=== PATIENT | male | born 1995 | race Caucasian/White ===

== ENCOUNTER 2017-06-19 19:02 | Inpatient (IN) | payer BC ==
[2017-06-19] VITALS: BP 102/65
[~2017-06-19] VITALS: Ht 170.2 cm; Wt 57.2 kg
[~2017-06-19 19:02] MED LIST: ADVAIRDISKUS; ALBUTEROL INH; ALBUTEROL2.5 MG/0.5 IH; EPIPEN0.3 MG/0.3 IM; FLONASE; FLOVENT DISKU100 MCG; PREDNISONE 20 M20 M1 PO; SINGULAIR5 MG
[2017-06-19 19:04] VITALS: BP 134/89
[2017-06-19 19:18] LABS: ABSOLUTE EOSINOPHILS 0.1 thou/uL (0.0-0.7); ABSOLUTE LYMPHOCYTES 1.7 thou/uL (0.8-5.3); ABSOLUTE MONOCYTES 0.8 thou/uL (0.0-1.2); ABSOLUTE NEUTROPHILS 3.7 thou/uL (1.6-8.1); BASOPHILS 0.6 %; EOSINOPHILS 1.9 %; HEMATOCRIT 48.7 % (42.0-52.0); HEMOGLOBIN 16.9 gm/dL (14.0-18.0); LYMPHOCYTES 26.3 %; MCH 31.4 pg (26.0-34.0); MCHC 34.8 g/dL (28.0-37.0); MCV 90.3 fL (80.0-100.0); MONOCYTES 12.3 %; MPV 7.2 fl. (7.2-11.1); NUCLEATED RBCS 0 /100WBC; PLATELET COUNT* 264 thou/uL (150-400); POLYS 58.9 %; RBC 5.39 mil/uL (4.50-6.00); RDW-CV 12.4 % (10.5-14.5); WBC 6.3 thou/uL (4.0-11.0)
[2017-06-19 19:27] LABS: CALCIUM 8.7 mg/dL (8.5-10.1); CREATININE 0.9 mg/dL (0.6-1.3); POTASSIUM 3.1 mmol/L (3.5-5.1)
[2017-06-19 19:31] LABS: ALBUMIN 5.1 g/dL (3.4-5.0); TOTAL BILIRUBIN 1.1 mg/dL (<0.1-1.0)
[2017-06-19 21:00] LABS: URINE BILIRUBIN NEGATIVE (Negative); URINE BLOOD NEGATIVE (Negative); URINE CLARITY CLEAR; URINE COLOR YELLOW; URINE GLUCOSE-RANDOM NEGATIVE (Negative); URINE KETONES TRACE (Negative); URINE LEUKOCYTES-REFLEX NEGATIVE (Negative); URINE NITRITE-REFLEX NEGATIVE (Negative); URINE PROTEIN NEGATIVE (Negative); URINE SPECIFIC GRAVITY 1.015 (1.005-1.030); URINE UROBILINOGEN 0.2 E.U./dl (0.2-1.0)
[2017-06-19 21:05] LABS: AMP/METHAMP Negative (Negative); BARBITURATES POSITIVE (Negative); BENZODIAZEPINES Negative (Negative); COCAINE Negative (Negative); METHADONE Negative (Negative); OPIATES Negative (Negative); PCP Negative (Negative); THC Negative (Negative)
[2017-06-19 21:49] VITALS: BP 111/76
[2017-06-19 22:00] VITALS: BP 101/60
[2017-06-19 22:57] LABS: CALCIUM 8.1 mg/dL (8.5-10.1); CREATININE 0.9 mg/dL (0.6-1.3); MAGNESIUM 1.7 mg/dL (1.8-2.4); POTASSIUM 3.3 mmol/L (3.5-5.1)
[2017-06-20] VITALS (9 sets, daily range): BP systolic 88–117; BP diastolic 46–76
--- NOTE | 2017-06-20 07:11 | NUR ---
PATIENT ARRIVED ON UNIT AT APPROX 2145. ALERT AND ORIENTED TIMES FOUR. COMPLAINTS F NAUSEA. EMESIS NOTED. ADAPTIVE PHYSICAL EDUCATION SPECIALIST COMPLETED DOCUMENENTED, IVS IN BILATERAL FOREARMS PATIENT TO FLUIDS. POISON CONTROL CALLED TWICE TO RECEIVE UPDATES N THE PATIENTS CONDITION. RECOMMENDED LABS ORDERED AND DRAWN. ACETEMETAPHINE LEVEL IS BELOW LEVEL TO BE GIVING REVERSAL MEDICATIONS AT THIS TIE. PICTURE OF WOUND ON LEFT FOREARM ON CHART AND INTERVENTION COMPLETED. PATIENT HAS 1:[address] COOPER CATHETER PLACED PER PROTOCOL AND PATIENT REQUEST. STATES THAT HE HAS HAD THESE PROBLEMS,RETENTION, FOR AWHILE AND HAS AN APPT WITH UROLOGY COMING UP" PATIENT HAS HAD MINOR COMPLAINTS OF PAIN THROUGH THE NIGHT. EDUCATION COMPLETED ON SIDE EFECTS OF OVERDOSE ON THE MEDICATION THAT HE INGESTED. ALL OTHER AREAS OF THE SKIN ARE WARM AND DRY WITH NO SIGNS OF BREAKDOWN OR SELF-HARM. VITAL SIGNS REMAIN STABLE, HYPOTENSIVE AND TACHY. PATIENT SLEEPING AT THIS TIME.
[2017-06-20 07:21] LABS: HEMATOCRIT 41.6 % (42.0-52.0); MCH 31.4 pg (26.0-34.0); MCHC 34.6 g/dL (28.0-37.0); MCV 90.7 fL (80.0-100.0); MPV 7.2 fl. (7.2-11.1); RBC 4.59 mil/uL (4.50-6.00); RDW-CV 12.5 % (10.5-14.5); WBC 7.7 thou/uL (4.0-11.0)
[2017-06-20 07:22] LABS: HEMOGLOBIN 14.4 gm/dL (14.0-18.0)
[2017-06-20 07:34] LABS: ALBUMIN 3.6 g/dL (3.4-5.0); CALCIUM 8.1 mg/dL (8.5-10.1); CREATININE 0.9 mg/dL (0.6-1.3); MAGNESIUM 1.9 mg/dL (1.8-2.4); TOTAL BILIRUBIN 0.9 mg/dL (<0.1-1.0); TOTAL PROTEIN 6.4 g/dL (6.4-8.2)
[2017-06-20 07:39] LABS: POTASSIUM 4.3 mmol/L (3.5-5.1)
[2017-06-20 11:18] LABS: INR 1.3; PROTIME 12.7 Seconds (9.20-11.50)
--- NOTE | 2017-06-20 12:33 | EKG ---
[place] [address] ELECTROCARDIOGRAM REPORT Name: CATHERINE MUSA Room: [address] ADM IN M.R.#: [id number] Admission: 06/19/17 Attend Phys: Sheng Pozo, Discharge: Date of : 89 Report #: [id number] THIS REPORT FOR: //name// [facility] ED Test Date: 2017-06-19 Test Time: 19:28:12 Pat Name: CATHERINE MUSA Department: Room: [facility] Gender: M Airline Operations Agent: NICCI : [id number] Requested By: Jenny Lam Order Number: [id number] MD: Marshal Veras Measurements Intervals [place] Rate: 88 P: 54 [place]: 118 QRS: 58 QRSD: 99 T: 41 QT: 342 QTc: 414 Interpretive Statements Sinus rhythm Borderline short [place] interval No previous ECG available for comparison Electronically Signed On 06-20-2017 12:33:43 STONE FINISHER by Marshal Veras [email or web address] <ELECTRONICALLY SIGNED> By: Marshal Veras MD, [facility] 06/20/17 1233 27 27 Marshal Veras MD, FAC /EPI
--- NOTE | 2017-06-20 15:00 | NUR ---
PT TRANSPORTED TO ROOM 308 VIA WHEELCHAIR. 1:1 SITTER TO TRANSPORT WITH PATIENT. WILL CONTINUE TO MONITOR.
[2017-06-21 00:06] VITALS: BP 110/48
[2017-06-21 03:59] LABS: HEMOGLOBIN 13.3 gm/dL (14.0-18.0); MCH 31.4 pg (26.0-34.0); MCHC 34.1 g/dL (28.0-37.0); MCV 92.2 fL (80.0-100.0); MPV 7.3 fl. (7.2-11.1); RBC 4.23 mil/uL (4.50-6.00); RDW-CV 12.9 % (10.5-14.5); WBC 5.4 thou/uL (4.0-11.0)
[2017-06-21 04:18] LABS: CALCIUM 7.9 mg/dL (8.5-10.1); MAGNESIUM 1.8 mg/dL (1.8-2.4); POTASSIUM 4.1 mmol/L (3.5-5.1); TOTAL BILIRUBIN 0.4 mg/dL (<0.1-1.0); TOTAL PROTEIN 5.4 g/dL (6.4-8.2)
[2017-06-21 08:00] VITALS: BP 106/60
[2017-06-21 09:00] VITALS: BP 106/601
[2017-06-21 12:00] VITALS: BP 111/68
--- NOTE | 2017-06-21 13:59 | NUR ---
ASSUMED CARES OF PT AT 0700. PT IN BED ASLEEP WITH MOTHER AT BEDSIDE. BED IN LOW AND LOCKED POSITION, BED ALARM ON, SITTER IN PLACE/ONE ON ONE. CALL BUTTON AND PERSONAL ITEMS IN PT REACH. PT A&O X4, APPROPRIATE, SMILING, COOPERATIVE AT THIS TIME. VSS ON RA, HR SHANEL (54), PT DENIES PAIN, AFEBRILE, LFA IV WITH NS 200 ML/HR INFUSING. RIGHT FA IV SALINE LOCKED. LFA LACERATION HEALING, NO S/SX OF INFECTION. CONSULTS - UROLOGY, PSYCH, GI. PT ON SI PRECAUTIONS. DR. FERNÁNDEZ ORDERED D/C COOPER, COMPLETED. URINE OUTPUT/BLADDER SCANS CONTINUE. NO EDEMA, GOOD APPEITITE. PT UP INDEPENDENTLY WITH FAMILY AND SITTER IN ROOM. SI PRECAUTIONS IN PLACE. FLUIDS TO D/C AFTER COMPLETION OF PRESENT BAG. PT PROGRESSING TOWARDS GOAL, WILL CONTINUE TO MONITOR PT PROGRESS AND STATUS.
--- NOTE | 2017-06-21 14:13 | NUR ---
UROLOGY CALLED RE. PT OUTPUT IN LAST 3 HOURS AND RESIDUAL. PT URINATED IN URINAL TWO TIMES, 350 ML EACH TIME FOR TOTAL OF 700 ML OUT PUT AND RESIDUAL CHECK POST URINATION WAS 54 ML PER BLADDER SCAN. UROLOGY ENCOURAGES PT TO REDUCE AMOUNT OF SODA POP/CAFFEINE INTAKE. PHONE CALL TO UROLOGY WAS AT 1416, SPOKE WITH JOBY LOZA.
[2017-06-21 16:00] VITALS: BP 112/70
--- NOTE | 2017-06-21 18:02 | NUR ---
NURSE RECEIVED PHONE CALL AT 1802 FROM [facility] RE: PT STILL NEEDING AT PLACEMENT OR NOT. REFER TO CASE MANAGEMENT TO CONTACT [facility] AT [phone].
[2017-06-21 19:35] VITALS: BP 116/76
--- NOTE | 2017-06-21 19:52 | NUR ---
REPORT TO CRUTCHER HELPER FOR CONTINUED CARES. PT REMAINS STABLE, WATCHING TV FROM BED WITH PARENTS AT BEDSIDE. ONE ON ONE FOR SI. IV SALINE LOCKED. PT PROGRESSING TOWARDS GOAL. HOURLY ROUNDS COMPLETED.
--- NOTE | 2017-06-22 04:49 | NUR ---
END SHIFT: PT RESTED WELL. NO COMPLAINTS. NO PAIN. SITTER IN ROOM. NO ISSUES WITH URINATION OVERNIGHT. SAFETY PRECAUTIONS IN PLACE. CALL LIGHT IN REACH. PERFORMED HOURLY ROUNDING. WILL CONT TO MONITOR.
[2017-06-22 08:00] VITALS: BP 116/76
--- NOTE | 2017-06-22 14:29 | NUR ---
SW receiving info from covering SW yesterday that a referral was sent to [facility] and that pt was accepted and bed available. SW received notification from Dr Cano that pt was ready to dc today. SW called [facility] and they said that they did not accept pt and that they had denied due to their acuity level and not being able to meet needs of pt at this time. SW called [facility] and they are reviewing the referral however they do not have any beds available at this time. SW called [facility] who said that they do not have any beds available today. SW called [facility] and spoke with Robyn and SW fax[facility]. SW to continue to follow to assist with safe dc planning and placement. SW informed pt mother about status of dc placement.
[2017-06-22 16:00] VITALS: BP 102/44
--- NOTE | 2017-06-22 19:54 | NUR ---
ASSUMED CARE THIS AM. PATIENT ASSESSMENT UNREMARKABLE, NO LONGER C/O POLYURIA, DENIES PAIN, COMPLIANT WITH CARES AND MEDICATION. CONTINUES TO BE UNDER CONSTANT OBS DUE TO SUICIDAL ATTEMPT, PER CASE MANAGEMENT NOT ABLE TO FIND A FACILITY THAT WILL ACCEPT PATIENT. BOTH PARENTS AT BEDSIDE, VERY FRUSTRATED WITH CURRENT SITUATION AND INCONSISTENT COMMUNICATION.
--- NOTE | 2017-06-22 21:03 | NUR ---
PATIENT RECEIVED ACCEPTANCE AT [facility]. PATIENT NOTIFIED OF ACCEPTANCE. PATIENT REQUESTED THAT RN CONTACT MOTHER. MOTHER NOTIFIED OF ACCEPTANCE. REPORT CALLED TO ACCEPTING FACILITY, INPATIENT NURSEELIUD.
[2017-06-22 21:07] VITALS: BP 102/44
[2017-06-22] MEDS ORDERED: FLOMAX0.4 MG PO (21:15)
--- NOTE | 2017-06-22 23:12 | NUR ---
[facility] HERE TO TRANSPORT PATIENT TO FACILITY. INPATIENT NURSE NOTIFIED. NO QUESTIONS VERBALIZED. VSS.
== END 2017-06-22 23:14 | DRG 918 ==
LOC: M.ERS 19:02 → M.3W 20:12 → M.TBA-ER 20:12 → M.ICU 20:58 → M.3W 06-20 14:50
PROVIDERS: Emergency Medicine; Internal Medicine Gastroenterology; ADMIT Family Medicine
DX: T39.1X2A Poisoning by 4-Aminophenol derivatives, intentional self-harm, initial encounter (principal); R45.851 Suicidal ideations; J45.909 Unspecified asthma, uncomplicated; F32.9 Major depressive disorder, single episode, unspecified; E87.6 Hypokalemia; R35.0 Frequency of micturition; R33.9 Retention of urine, unspecified; Z88.2 Allergy status to sulfonamides; Y92.89 Other specified places as the place of occurrence of the external cause; Z23 Encounter for immunization